=== PATIENT | male | born 1950 | race Caucasian/White ===

== ENCOUNTER → 2017-07-12 | Outpatient (REF) | payer MEDICARE ==
[~2017-07-12] MED LIST: CELE1CAP4 PO; COUM2.5T17 PO; IRON65TA PO; LYRI75CA PO; MULTCAP PO; PERC5TAB12 PO; RAPA8CAP PO; TYLE325T5 PO; VITA100066 PO; aleve
== END ==
LOC: M SMT 16:58
PROVIDERS: ATTEND Nurse Practitioner Women's Health
DX: N40.1 Benign prostatic hyperplasia with lower urinary tract symptoms (principal)

== ENCOUNTER → 2017-09-01 | Outpatient (REF) | payer MEDICARE ==
[2017-09-01 11:40] LABS: ANION GAP 3 MEQ/L (8-16); BLOOD UREA NITROGEN 20 MG/DL (7-18); CALCIUM LEVEL 8.8 MG/DL (8.8-10.2); CARBON DIOXIDE LEVEL 32 MEQ/L (21-32); CHLORIDE LEVEL 106 MEQ/L (98-107); CREATININE FOR GFR 0.86 MG/DL (0.70-1.30); GLOMERULAR FILTRATION RATE > 60.0 (>49); GLUCOSE, FASTING 90 MG/DL (80-110); POTASSIUM SERUM 4.4 MEQ/L (3.5-5.1); SODIUM LEVEL 141 MEQ/L (136-145)
== END ==
LOC: M LABSMT 07:36 → M LABDRAWC 07:56
PROVIDERS: ATTEND Urology
DX: C61 Malignant neoplasm of prostate (principal)

== ENCOUNTER → 2017-09-02 | Outpatient (CLI) | payer MEDICARE ==
[~2017-09-02] MED LIST changes: +PROHANCE 279.3MG/ML 15ML VIAL (A9576) As Ordered ONE
--- NOTE | 2017-09-02 14:36 | REP ---
MULTIPARAMETRIC PROSTATE MR STUDY WITH AND WITHOUT GADOLINIUM: HISTORY: Elevated PSA, BPH. TECHNIQUE: Using a phased array surface coil, small field of view imaging was acquired using T2-weighted scans in the axial, coronal, and sagittal imaging planes. Small field of view diffusion-weighted sequences are acquired. Small field of view axial T1-weighted scans are acquired dynamically after the intravenous administration of 13 mL of gadolinium. Using a large field of view, the entire pelvis to the level of the aortic bifurcation was imaged using pre-contrast axial T1 and post-contrast axial T1 fat-saturation images. Study is limited due to artifact from a metallic left hip prosthesis partially obscuring the left side of the prostate. Visualized osseous structures demonstrate no definite bone lesion. No adenopathy is seen in the pelvis. Seminal vesicles appear unremarkable. There is nodular mixed low and high signal hypertrophy of the central gland consistent with benign prostatic hypertrophy. Prostate measures 6.1 x 5.7 x 6.2 cm for a total volume of 101.5 mL. There are two focal areas of abnormal signal intensity and enhancement identified. First in the left mid anterior transitional zone and left basilar transitional zone there is a geographic area of relatively low signal on T2-weighted images which demonstrates predominantly type 2 enhancement characteristics. The area measures approximately 2.6 x 1.4 x 2.8 cm for a total volume of 5.24 mL. Overall level of suspicion is 3 out of 5 with clinically significant cancer equivocal. Second in the left mid posterior transitional zone there is another geographic area of somewhat low signal on T2 with no well defined margin. The enhancement pattern is predominantly type 2. The area measures 2.6 x 0.9 x 1.4 cm for a total volume of 2.2 mL. Overall level of suspicion is 3 out of 5 with clinically significant cancer equivocal. IMPRESSION: Findings compatible with benign prostatic hypertrophy. Two focal areas of abnormal signal and enhancement identified for MR fusion utilization. Signed by Mookie Holt MD 09/05/2017 09:52 A
== END ==
LOC: M RAD 10:47
PROVIDERS: ATTEND Nurse Practitioner Women's Health
DX: C61 Malignant neoplasm of prostate (principal); N40.0 Benign prostatic hyperplasia without lower urinary tract symptoms
CPT/HCPCS: 72197; A9576

== ENCOUNTER → 2017-09-23 | Outpatient (CLI) | payer MEDICARE ==
[~2017-09-23] MED LIST changes: -PROHANCE 279.3MG/ML 15ML VIAL (A9576) As Ordered ONE
--- NOTE | 2017-09-23 11:38 | REP ---
Prostate sonography: History: Elevated PSA. Sonographic findings: Trans rectal prostate sonography demonstrates unremarkable seminal vesicles. Prostate gland is heterogeneously enlarged with calcifications and cystic changes noted. Glandular dimensions are measured at 6.3 x 5.6 x 5.9 cm with a calculated glandular volume of 109 ml. Transrectal sonographic guidance provided to Dr. Espinosa who performed trans rectal ultrasound guided needle biopsy procedure . Signed by Sam Hradwick MD 09/23/2017 01:13 P
== END ==
LOC: M SMT PRO 08:29
PROVIDERS: ATTEND Urology
DX: R97.20 Elevated prostate specific antigen [PSA] (principal); N40.0 Benign prostatic hyperplasia without lower urinary tract symptoms
CPT/HCPCS: 76872; 76942; G0416

== ENCOUNTER 2017-11-01 06:04 | Inpatient (IN) | payer MEDICARE ==
[~2017-11-01] VITALS: Ht 170.2 cm; Wt 62.0 kg
[2017-11-01] VITALS (7 sets, daily range): BP systolic 127–150; BP diastolic 70–84
[2017-11-01] MEDS ORDERED: LR 1,000 ML IV SCH ×2 (06:15→12:30)
[2017-11-01] MEDS ORDERED: ROCURONIUM BROMIDE 50 MG/5 ML VIAL As Ordered ONE ×3 (07:09→10:20)
[2017-11-01] MEDS ORDERED: ONDANSETRON 4MG/2ML VIAL (J2405) As Ordered ONE ×2 (07:09→11:28)
[2017-11-01] MEDS ORDERED: PROPOFOL 200 MG/20 ML VIAL As Ordered ONE (07:09)
[2017-11-01] MEDS ORDERED: LIDOCAINE 2% INJ 100 MG/5 ML SDV (FOR ANES.) As Ordered ONE (07:09)
[2017-11-01] MEDS ORDERED: METOCLOPRAMIDE INJ 10MG/2ML VIAL (J2765) As Ordered ONE (07:09)
[2017-11-01] MEDS ORDERED: MIDAZOLAM INJ 2 MG/2 ML VIAL (J2250) As Ordered ONE (07:10)
[2017-11-01] MEDS ORDERED: fentaNYL 250 MCG/5 ML INJECTION (J3010) As Ordered ONE (07:10)
[2017-11-01] MEDS ORDERED: dexameTHASONE 4 MG/ML 1ML VIAL (J1100) As Ordered ONE (08:46)
[2017-11-01] MEDS ORDERED: fentaNYL 100 MCG/2 ML INJECTION (J3010) As Ordered ONE ×2 (10:41→11:55)
[2017-11-01] MEDS ORDERED: ceFAZolin 2 GM/D5W 50 ML IV BAG (J0690 PER 500MG) As Ordered ONE (11:08)
[2017-11-01] MEDS ORDERED: NEOSTIGMINE 10 MG/10 ML VIAL (J2710) As Ordered ONE (11:33)
[2017-11-01] MEDS ORDERED: GLYCOPYRROLATE INJ 0.2 MG/ML 2 ML VIAL As Ordered ONE (11:33)
[2017-11-01] MEDS: fentaNYL 100 MCG/2 ML INJECTION (J3010) IV PRN ×4 (11:59→12:25)
[2017-11-01] MEDS ORDERED: oxyCODONE 5MG TAB PO PRN (12:30)
[2017-11-01] MEDS ORDERED: HYDROmorphone HCL 1 MG/ML SYRINGE (J1170) IV PRN (12:30)
[2017-11-01] MEDS ORDERED: MORPHINE 4 MG/ML 1ML SYRINGE IV PRN (12:30)
[2017-11-01] MEDS ORDERED: ONDANSETRON 4MG/2ML VIAL (J2405) IV PRN ×2 (12:30)
[2017-11-01 12:43] LABS: MEAN CORPUSCULAR HEMOGLOBIN 30.7 pg (27.0-33.0); MEAN CORPUSCULAR HGB CONC 33.7 g/dl (32.0-36.5); PLATELET COUNT, AUTOMATED 269 10^3/uL (150-450); RED CELL DISTRIBUTION WIDTH 14.4 % (11.5-14.5); WHITE BLOOD COUNT 14.8 10^3/uL (4.0-10.0)
[2017-11-01 13:09] LABS: ANION GAP 5 MEQ/L (8-16); BLOOD UREA NITROGEN 19 MG/DL (7-18); CALCIUM LEVEL 8.4 MG/DL (8.8-10.2); CARBON DIOXIDE LEVEL 28 MEQ/L (21-32); CHLORIDE LEVEL 108 MEQ/L (98-107); CREATININE FOR GFR 1.07 MG/DL (0.70-1.30); GLOMERULAR FILTRATION RATE > 60.0 (>49); GLUCOSE, FASTING 171 MG/DL (80-110); POTASSIUM SERUM 4.1 MEQ/L (3.5-5.1); SODIUM LEVEL 141 MEQ/L (136-145)
[2017-11-01] MEDS: ACETAMINOPHEN 650MG ER TAB (TYLENOL ARTHRITIS) PO SCH ×2 (14:14→21:36)
[2017-11-01] MEDS: KCL 20MEQ IN D5/0.45NS 1000ML 1,000 ML IV SCH ×2 (14:15→21:36)
[2017-11-01] MEDS ORDERED: LevoFLOXacin IV 500 MG in APPROPRIATE DILUENT 1 EA IV SCH (17:00)
[2017-11-01] MEDS ORDERED: PANTOPRAZOLE 40MG INJ (PROTONIX) (C9113) IV SCH (18:00)
[2017-11-02 02:00] VITALS: BP 126/72
[2017-11-02] MEDS: KCL 20MEQ IN D5/0.45NS 1000ML 1,000 ML IV SCH ×2 (04:30→13:26)
[2017-11-02] MEDS: ACETAMINOPHEN 650MG ER TAB (TYLENOL ARTHRITIS) PO SCH ×2 (05:31→13:26)
[2017-11-02 06:00] VITALS: BP 141/80
[2017-11-02 06:23] LABS: MEAN CORPUSCULAR HEMOGLOBIN 30.5 pg (27.0-33.0); MEAN CORPUSCULAR HGB CONC 34.3 g/dl (32.0-36.5); MEAN CORPUSCULAR VOLUME 88.9 fl (80.0-96.0); PLATELET COUNT, AUTOMATED 229 10^3/uL (150-450); RED CELL DISTRIBUTION WIDTH 14.6 % (11.5-14.5); WHITE BLOOD COUNT 9.7 10^3/uL (4.0-10.0)
[2017-11-02 06:38] LABS: ANION GAP 7 MEQ/L (8-16); BLOOD UREA NITROGEN 13 MG/DL (7-18); CARBON DIOXIDE LEVEL 26 MEQ/L (21-32); CHLORIDE LEVEL 110 MEQ/L (98-107); CREATININE FOR GFR 0.89 MG/DL (0.70-1.30); GLOMERULAR FILTRATION RATE > 60.0 (>49); GLUCOSE, FASTING 119 MG/DL (80-110); SODIUM LEVEL 143 MEQ/L (136-145)
[2017-11-02 10:00] VITALS: BP 129/83
[2017-11-02 14:00] VITALS: BP 139/87
[2017-11-02] MEDS ORDERED: TYLE650T35 PO (14:51)
[2017-11-02] MEDS ORDERED: CIPR500T3 PO (14:51)
--- NOTE | 2017-11-04 11:33 | RO ---
DATE OF PROCEDURE: 11/01/2017 PREOPERATIVE DIAGNOSIS: Prostate cancer. POSTOPERATIVE DIAGNOSIS: Prostate cancer. SURGERY PERFORMED: Robotic-assisted radical prostatectomy. SURGEON: Dr. Laci Espinosa REEL FILM INSPECTOR: ANESTHESIA: General. COMPLICATIONS: None. ESTIMATED BLOOD LOSS: 100 mL. HISTORY OF PRESENT ILLNESS: 67-year-old male patient with history of prostate cancer clinical stage [id number]. He has been on active surveillance due to 1 positive core out of a 12 core prostate biopsy. Since then, he has had a biopsy which actually was negative; however, the patient has decided now that he would like to undergo a robotic-assisted radical prostatectomy for management of his prostate cancer. We have presented to him all the clinical options, such as continuing active surveillance, robotic-assisted radical prostatectomy, seeds , and XRT. The patient is aware of all the management approaches, but he would like to undergo a robotic-assisted radical prostatectomy. For this reason, he has consented and we will do the surgery today. PROCEDURE DESCRIPTION: In a patient under general anesthesia in supine modified low lithotomy position, after prepping and draping the area of concern, which included the entire genitalia and abdomen, we started by putting a Booth catheter, #16-Maltese Booth with 10 mL balloon, to drain the bladder. We then proceeded to do an incision in the midline infraumbilically, vertically for about 2 cm in length. Through this incision, we opened the Retzius space; and with a SpaceMaker, we dissected the Retzius space. We then proceeded to put a balloon trocar and inflate the balloon to 40 mL; and through this trocar, we insufflated the extraperitoneal space with CO2 at maximum pressure of 15 on high flow. With a handheld robotic camera, we placed the other trocars in a fan shaped manner, two metallic trocars by each other 8 cm away from each other on the right side and two other trocars on the left side. The first trocar in the midclavicular line at 6 cm away from the midline, a VersaStep 12 mm in diameter ; 8 cm away from this one, an 8 mm metallic trocar. We then placed the patient in steep Trendelenburg position and docked the robot. On the left arm, we used monopolar scissors. On the right arm, we used bipolar PK; and on the third arm, we used ProGrasp. We started by dissecting the Retzius space in the periprosthetic fat on top of the prostate. We identified the endopelvic fascia on both sides and incised it with monopolar scissors from base to the apex. We then proceeded to secure the dorsal vein complex of the prostate with a CT-1 needle and #0 Vicryl times two. We then proceeded to open the anterior bladder neck with monopolar scissors, identified the Booth, deflated the balloon, and grabbed the Booth with the third arm and put into traction anteriorly to actually put into traction the posterior bladder neck. We incised the posterior bladder neck and then incised the posterior detrusor muscle and dissected both vas deferens. We then grabbed, with the third arm, the vas deferens and pulled into traction anteriorly. This placed into traction both seminal vesicles. It was easy to actually dissect both seminal vesicles out and fulgurate the seminal vesicle arteries. We then grabbed both seminal vesicles and put into traction anteriorly, also to put into traction the posterior Denonvilliers' fascia. We incised the posterior Denonvilliers' fascia with monopolar scissors and dissected the rectum from base to apex. We then proceeded the secure the prostatic pedicles with extra large Hem-o-obie's on the left side times two and the right side times two. We dissected the neurovascular bundles in an interfacial approach from base to apex. Once the prostate was attached to the dorsal vein complex and urethra, we cut the dorsal vein complex and urethra and placed the prostate and seminal vesicles into 10 mm Endo Catch bag. We then proceeded to do our posterior reconstruction of the posterior Denonvilliers' fascia with a V-Loc #3-0 in a running fashion. We then proceeded to actually do a urethrovesical anastomosis with a quill stitch, absorbable barbed suture, double needle, starting at 6 o'clock in the bladder neck outside in and inside out of the urethra, running it across 360 degrees and tying the knot. Prior to tying the knot, we actually passed a #20-Maltese Booth catheter and inflated the balloon to 20 mL. Of note, we reduced the bladder neck at 9 o'clock and 3 o'clock with #2-0 Monocryl stitches times two on the left and the right of the bladder neck to reduce the bladder neck. The anastomosis came out very well and watertight. At that moment in time, we took the third arm out and placed a Kali-Alvarado (BIA ) drain into the pelvis. We then proceeded to take all the instruments out, undocked the robot, took all the trocars out, and extracted the specimen in an Endo Catch bag through midline. We closed the midline with UR-6 needle and #0 Vicryl in a running fashion. We closed every single incision with #4-0 Monocryl and then placed Mastisol and Steri-Strips and Telfa and Tegaderm on top of each incision. The drain was secured with #3-0 nylon. PLAN: The patient will pass to recovery and then to the floor. Once he is tolerating regular diet, ambulating very well, he will be discharged home with a Booth catheter. Specimen was sent as prostate and seminal vesical to pathology. Estimated blood loss (EBL) was 100 mL. There were no complications. MTDD
--- NOTE | 2017-11-04 18:16 | DSES ---
DATE OF ADMISSION: 11/01/2017 DATE OF DISCHARGE: 11/02/2017 DATE OF SURGERY: 11/01/2017 ADMISSION DIAGNOSIS: Prostate cancer. DISCHARGE DIAGNOSIS: Prostate cancer. SURGERY PERFORMED: Robotic-assisted radical prostatectomy. ADMITTING SURGEON: Dr. Laci Espinosa DISCHARGING SURGEON: Dr. Laci Espinosa SURGERY PERFORMED BY: Dr. Laci Espinosa HISTORY OF PRESENT ILLNESS: This is a 67-year-old male patient with a history of prostate cancer, clinical stage [id number], [place] 7. The patient has been placed into active surveillance. His last biopsy done here at [facility] was negative; however, the patient requested to have surgical therapy due to his prostate cancer. He did not want to continue on active surveillance. He did not want to continue following PSAs every 6 months and biopsy every year. For this reason, he decided to undergo a robotic-assisted radical prostatectomy. He signed the consent form, and surgery was performed on 11/01/2017. HOSPITALIZATION COURSE: The patient did very well. By postoperative day #1 he was tolerating a regular diet, ambulating very well. Pain was controlled with by mouth pain medication. The patient had a Booth catheter draining clear urine. Kali-Alvarado (BIA) output was minimum. For this reason, we continued BIA drainage, and the Booth catheter will remain in place for 10 days. He requested to go home, and we agreed upon this. He will go home with antibiotics, ciprofloxacin 500 mg one tablet by mouth twice a day for 10 days and Tylenol extended release 650 mg one tablet by mouth every 8 hours as needed for pain. He may shower in 3 days. He cannot carry heavy lifting above 20 pounds. He will followup at [facility] 10 days for removal of the Booth catheter. Pathology has not come out yet.
== END 2017-11-02 15:54 | disposition home or self-care (01) | DRG 708 ==
LOC: M OR 06:04 → M MSPAV 13:18
PROVIDERS: ADMIT Urology; ATTEND Urology
PROC: 0VT34ZZ Resection of Bilateral Seminal Vesicles, Percutaneous Endoscopic Approach (ICD-10-PCS; 2017-11-01)
PROC: 0TQD4ZZ Repair Urethra, Percutaneous Endoscopic Approach (ICD-10-PCS; 2017-11-01)
PROC: 8E0W4CZ Robotic Assisted Procedure of Trunk Region, Percutaneous Endoscopic Approach (ICD-10-PCS; 2017-11-01)
PROC: 0VT04ZZ Resection of Prostate, Percutaneous Endoscopic Approach (ICD-10-PCS; principal; 2017-11-01 07:30)
DX: C61 Malignant neoplasm of prostate (principal)

== ENCOUNTER → 2017-11-16 | Outpatient (REF) | payer MEDICARE | LOC: M LABSMT 11:49 | DX: C61 Malignant neoplasm of prostate (principal); R32 Unspecified urinary incontinence | CPT/HCPCS: 87186 ==

== ENCOUNTER → 2017-12-06 | Outpatient (REF) | payer MEDICARE ==
[2017-12-06 12:09] LABS: PROSTATIC SPECIFIC AG MONITOR 0.02 NG/ML (< 4.0)
== END ==
LOC: M SFHCCLAY 07:59
DX: C61 Malignant neoplasm of prostate (principal); R39.9 Unspecified symptoms and signs involving the genitourinary system
CPT/HCPCS: 84153

== ENCOUNTER → 2018-02-27 | Outpatient (REF) | payer MEDICARE ==
[2018-02-27 12:05] LABS: PROSTATIC SPECIFIC AG MONITOR < 0.01 NG/ML (< 4.0)
== END ==
LOC: M SFHCCLAY 09:06
DX: Z85.46 Personal history of malignant neoplasm of prostate (principal)
CPT/HCPCS: 84153

== ENCOUNTER → 2018-06-09 | Outpatient (REF) | payer MEDICARE ==
[2018-06-09 12:26] LABS: PROSTATIC SPECIFIC AG MONITOR 0.19 NG/ML (< 4.0)
== END ==
LOC: M SFHCCLAY 08:06
DX: Z85.46 Personal history of malignant neoplasm of prostate (principal)
CPT/HCPCS: 84153

== ENCOUNTER → 2019-02-07 | Outpatient (REF) | payer MEDICARE ==
[~2019-02-07] MED LIST changes: +CIPR500T3 PO; +TYLE650T35 PO
== END ==
LOC: M LABSMT 07:03 → M LABDRAWC 07:11
PROVIDERS: ATTEND Nurse Practitioner Women's Health
DX: Z85.46 Personal history of malignant neoplasm of prostate (principal)

== ENCOUNTER → 2019-08-07 | Outpatient (REF) | payer MEDICARE ==
[~2019-08-07] MED LIST changes: -RAPA8CAP PO; +RAPA8CAP4 PO
== END ==
LOC: M SFHCCLAY 07:16
PROVIDERS: ATTEND Nurse Practitioner Women's Health
DX: Z85.46 Personal history of malignant neoplasm of prostate (principal)

== ENCOUNTER → 2020-11-03 | Outpatient (CLI) | payer SELFPAY ==
[~2020-11-03] MED LIST changes: +ACET650T61 PO; -TYLE650T35 PO
== END ==
LOC: M LABSMTC 12:51
PROVIDERS: ATTEND Pediatrics
DX: Z20.828 Contact with and (suspected) exposure to other viral communicable diseases (principal)

== ENCOUNTER → 2021-12-18 | Outpatient (CLI) | payer MEDICARE | LOC: M LABSMTC 10:01 | PROVIDERS: ATTEND Anesthesiology | DX: Z01.812 Encounter for preprocedural laboratory examination (principal); Z20.822 Contact with and (suspected) exposure to COVID-19 ==

== ENCOUNTER 2021-12-23 08:24 | Day surgery (SDC) | payer MEDICARE ==
[~2021-12-23] VITALS: Ht 170.2 cm; Wt 60.3 kg
[~2021-12-23 08:24] MED LIST changes: +NS 1,000 ML IV ONE
[2021-12-23] MEDS ORDERED: LIDOCAINE 2% 100MG/5ML SDV (FOR ANES.) As Ordered ONE (10:24)
[2021-12-23] MEDS ORDERED: propofoL 500 MG/50 ML VIAL As Ordered ONE ×2 (10:25→11:47)
[2021-12-23] MEDS ORDERED: GLYCOPYRROLATE INJ 0.2 MG/ML 2 ML VIAL As Ordered ONE (10:40)
[2021-12-23 11:50] VITALS: BP 132/77
== END 2021-12-23 11:50 | disposition home or self-care (01) ==
LOC: M OPP 08:24
PROVIDERS: ATTEND Surgery
DX: K63.5 Polyp of colon (principal); R19.5 Other fecal abnormalities; Z85.46 Personal history of malignant neoplasm of prostate

== ENCOUNTER 2025-10-23 09:40 | Day surgery (SDC) | payer MEDICARE ==
[~2025-10-23] VITALS: Ht 167.6 cm; Wt 63.5 kg
[~2025-10-23 09:40] MED LIST changes: +ASCO500C3 PO; +B-12100010 PO; +LIDOCAINE 2% 100 MG/5 ML SDV (FOR ANES.) As Ordered ONE; -NS 1,000 ML IV ONE; +VITA100093 PO
[2025-10-23 11:37] VITALS: TEMP 97
[2025-10-23 11:55] VITALS: BP 129/66; O2SAT 99
== END 2025-10-23 12:19 | disposition home or self-care (01) ==
LOC: M OPP 09:40
PROVIDERS: ATTEND Surgery
DX: D12.3 Benign neoplasm of transverse colon (principal); K64.4 Residual hemorrhoidal skin tags; Z86.0100 Personal history of colon polyps, unspecified; Z79.899 Other long term (current) drug therapy